=== PATIENT | male | born 1980 | race Caucasian/White ===

== ENCOUNTER 2016-09-13 09:37 | Emergency (ER) | payer BC, OTHER ==
[2016-09-13] MEDS ORDERED: LORazepam 1 MG Tab PO ONE (10:20)
[2016-09-13] MEDS ORDERED: LORazepam 0.5 MG Tab PO ONE (11:02)
--- NOTE | 2016-09-13 11:08 | EDM.PDOC ---
ED HPI Behavioral Health - General Chief Complaint: Behavioral/Psych Stated Complaint: ANXIETY Time Seen by Provider: 09/13/16 10:01 Source of Information: Reports: Patient Exam Limitations: Reports: No limitations - History of Present Illness INITIAL COMMENTS - FREE TEXT/NARRATIVE: The patient presents with anxiety and depression. He has had depression for the past few months. This all started around April. He had a friend and then he had an injury at work that he has been dealing with. He also has been told by his girlfriend she needs a time out. He went to work today and could not handle it. He went to his car and started crying and he had a panic attack. His supervisor steel [employer] brought him here. He sees an [employer]ER for his mental health issues at [facility] in [place]. He called her and she called in a prescription for atarax. The patient is not suicidal. Onset of Symptoms: Reports: gradual Duration of Symptoms: Reports: Week(s): Severity: moderate Context, Behavioral Health: Reports: school/work, other ([facility]) Associated Symptoms: Reports: anxiety, depression - Related Data Allergies Allergy/AdvReac Type Severity Reaction Status Date / Time acetaminophen [From Ultracet] Allergy Itching Verified 09/13/16 09:52 amitriptyline Allergy Other Verified 09/13/16 09:52 codeine Allergy Itching Verified 09/13/16 09:52 levofloxacin [From Levaquin] Allergy Other Verified 09/13/16 09:52 testosterone Allergy Redness Verified 09/13/16 09:52 tramadol HCl [From Ultracet] Allergy Itching Verified 09/13/16 09:52 Home Medications: Home Meds Chlorthalidone 50 mg PO DAILY 07/02/15 [History] Cyclobenzaprine [Flexeril] 10 mg PO BEDTIME PRN 07/02/15 [History] DULoxetine [Cymbalta] 60 mg PO DAILY 07/02/15 [History] Eletriptan [Relpax] 40 mg PO ASDIRECTED PRN 07/02/15 [History] L.acidoph,Paracasei, B.lactis [Probiotic] 1 tab PO DAILY 07/02/15 [History] Multivitamin [Multivitamins] 1 tab PO DAILY 07/02/15 [History] Pantoprazole [Protonix] 40 mg PO BID 07/02/15 [History] Potassium Citrate [Potassium Citrate ER] 10 meq PO TID 07/02/15 [History] Testosterone Cypionate [Depo-Testosterone] 0.75 ml IM ASDIRECTED 07/02/15 [ History] Cyclobenzaprine [Flexeril] 10 mg PO BID PRN #30 tablet 08/13/16 [Rx] Topiramate [Topamax] 50 mg PO DAILY 08/13/16 [History] buPROPion [Wellbutrin] 200 mg PO DAILY 08/13/16 [History] Past Medical History Respiratory History: Reports: Bronchitis, recurrent Genitourinary History: Reports: Renal calculus Musculoskeletal History: Reports: Other (see below) Other Musculoskeletal History: Broken nose Neurological History: Reports: Migraines Psychiatric History: Reports: Depression - Past Surgical History HEENT Surgical History: Reports: Naso-sinus surgery, Tonsillectomy, Other (see below) Other HEENT Surgeries/Procedures: also had surgery to remove "scar tissue mass out" GI Surgical History: Reports: Cholecystectomy Male Surgical History: Reports: Renal Calculus Social & Family History - Tobacco Use Smoking Status *Q: Never Smoker Second Hand Smoke Exposure: No - Caffeine Use Caffeine Use: Reports: Coffee - Recreational Drug Use Recreational Drug Use: No - Living Situation & Occupation Living situation: Reports: , with spouse Occupation: employed ED ROS GENERAL - Review of Systems Review Of Systems: See Below Constitutional: Reports: no symptoms HEENT: Reports: No symptoms Respiratory: Reports: No Symptoms Cardiovascular: Reports: No symptoms Endocrine: Reports: no symptoms GI/Abdominal: Reports: No symptoms : Reports: no symptoms Musculoskeletal: Reports: no symptoms Skin: Reports: no symptoms Psychiatric: Reports: Anxiety, Depression ED EXAM, BEHAVIORAL HEALTH - Physical Exam Exam: See Below Exam Limited By: No limitations General Appearance: alert, no apparent distress Ears: normal external exam Nose: normal inspection Head: atraumatic, normocephalic Neck: normal inspection Respiratory/Chest: no respiratory distress, lungs clear, normal breath sounds Cardiovascular: regular rate, rhythm, no edema, no murmur GI/Abdominal: soft, non tender, no organomegaly, no mass Back Exam: normal inspection Extremities: normal inspection COURSE, BEHAVIORAL HEALTH COMP - Course Vital Signs: Last Vital Signs Temp 97.3 F 09/13/16 09:46 Pulse 108 H 09/13/16 09:46 Resp 22 H 09/13/16 09:46 BP 146/82 H 09/13/16 09:46 Pulse Ox 100 09/13/16 09:46 Orders, Labs, Meds: Medications Discontinued Medications Generic Name Dose Route Start Last Admin Trade Name Keith PRN Reason Stop Dose Admin Lorazepam 1 mg 09/13/16 10:20 09/13/16 10:24 Ativan PO 09/13/16 10:21 1 mg ONETIME ONE Administration Lorazepam 0.5 mg 09/13/16 11:02 09/13/16 11:09 Ativan PO 09/13/16 11:03 0.5 mg ONETIME ONE Administration Re-Assessment/Re-Exam: I ordered 2 doses of ativan and he feels better. His [employer]ER called in some atarax. Departure - Departure Time of Disposition: 11:20 Disposition: Home, Self-Care 01 Condition: good Clinical Impression: Depressive disorder, Anxiety, Panic disorder Referrals: Rohit Nguyen MD [Primary Care Provider] - Forms: ED Department Discharge Additional Instructions: Take your medications as prescribed and please return if you feel worse.
[2016-09-13 11:41] VITALS: BP 145/86
== END 2016-09-13 11:41 | disposition home or self-care (01) ==
LOC: JD.ED 09:37
DX: F41.0 Panic disorder [episodic paroxysmal anxiety] (principal); F32.9 Major depressive disorder, single episode, unspecified; G43.909 Migraine, unspecified, not intractable, without status migrainosus; Z98.890 Other specified postprocedural states; Z90.49 Acquired absence of other specified parts of digestive tract; Z79.899 Other long term (current) drug therapy; Z88.5 Allergy status to narcotic agent; Z88.6 Allergy status to analgesic agent; Z88.1 Allergy status to other antibiotic agents; Z88.8 Allergy status to other drugs, medicaments and biological substances
CPT/HCPCS: 99283; A9270

== ENCOUNTER 2017-01-20 05:48 | Emergency (ER) | payer BC ==
[2017-01-20 06:01] VITALS: BP 139/71
[2017-01-20] MEDS ORDERED: Lidocaine 1% 50 ML MDV INJECT ONE (06:01)
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
--- NOTE | 2017-01-20 06:54 | CT ---
Head CT Technique: Multiple axial sections through the brain were obtained. Intravenous contrast was not utilized. Comparison: Previous head CT exam of 08/13/16. Findings: Ventricles along with basal cisterns and sulci over the convexities are within normal limits for the patient's age. No abnormal parenchymal densities are seen. No evidence of intracranial hemorrhage. No midline shift or mass effect is seen. Bone window settings shows the visualized sinuses to appear clear. No acute calvarial abnormality is seen. Impression: 1. No acute intracranial abnormality is identified. No appreciable change is seen from previous exam. Diagnostic code #1
== END 2017-01-20 07:30 | disposition home or self-care (01) ==
LOC: JD.ED 05:48
DX: S02.2XXA Fracture of nasal bones, initial encounter for closed fracture (principal); S01.81XA Laceration without foreign body of other part of head, initial encounter; F32.9 Major depressive disorder, single episode, unspecified; Z98.890 Other specified postprocedural states; Z88.6 Allergy status to analgesic agent; Z88.5 Allergy status to narcotic agent; Z88.8 Allergy status to other drugs, medicaments and biological substances; Z79.899 Other long term (current) drug therapy; Z87.442 Personal history of urinary calculi; Y04.0XXA Assault by unarmed brawl or fight, initial encounter
CPT/HCPCS: 12013; 70450; 70450-26; 99284-25

== ENCOUNTER 2017-03-04 08:36 | Emergency (ER) | payer BC ==
[2017-03-04 08:48] VITALS: BP 111/74
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
--- NOTE | 2017-03-06 07:54 | CR ---
Soft tissue neck: AP and lateral views of the neck were obtained. Vertebral body heights and disc spaces are maintained. Prevertebral soft tissues are normal. Epiglottis is normal. No opaque foreign object is seen. Impression: 1. No abnormality is identified on two-view soft tissue neck exam. Diagnostic code #1
== END 2017-03-04 11:00 | disposition home or self-care (01) ==
LOC: JD.ED 08:36
DX: J02.9 Acute pharyngitis, unspecified (principal); F32.9 Major depressive disorder, single episode, unspecified; Z88.6 Allergy status to analgesic agent; Z88.5 Allergy status to narcotic agent; Z88.1 Allergy status to other antibiotic agents; Z79.899 Other long term (current) drug therapy; Z87.442 Personal history of urinary calculi; Z90.49 Acquired absence of other specified parts of digestive tract
CPT/HCPCS: 70360; 70360-26; 99283

== ENCOUNTER 2024-04-10 05:53 | Emergency (ER) | payer BC ==
[2024-04-10] MEDS: Sodium Chloride 0.9% 1,000 ML IV SCH (06:18)
[2024-04-10] MEDS: HYDROmorphone 1 MG/ML Syringe IVPUSH ONE (06:18)
[2024-04-10] MEDS: Metoclopramide 10 MG/2 ML SDV IVPUSH ONE (06:19)
[2024-04-10] MEDS: diphenhydrAMINE 50 MG/ML SDV IVPUSH ONE (06:19)
[2024-04-10 06:38] LABS: APPEARANCE,URINE CLEAR (Clear); BILIRUBIN,URINE NEGATIVE (Negative); COLOR,URINE YELLOW (Yellow); GLUCOSE,URINE NEGATIVE (Negative); KETONES,URINE NEGATIVE (Negative); LEUKOCYTE ESTERASE,URINE 1+ (Negative); NITRITE,URINE NEGATIVE (Negative); OCCULT BLOOD,URINE 1+ (Negative); PROTEIN,URINE 2+ (Negative); UROBILINOGEN,URINE 0.2 (0.2-1.0)
[2024-04-10 06:48] LABS: AMORPHOUS SEDIMENT,URINE MODERATE /hpf (NOT SEEN); BACTERIA,URINE FEW /hpf (FEW); EPITHELIAL CELLS,URINE 0-5 /hpf (0-5); MUCUS,URINE FEW /hpf (FEW)
[2024-04-10] MEDS ORDERED: Acetaminophen/oxyCODONE 325-5 MG Tab PO ONE (07:26)
[2024-04-10 12:50] VITALS: BP 130/78; PULSE 78
== END 2024-04-10 08:10 | disposition home or self-care (01) ==
LOC: JD.ED 05:53
DX: N23 Unspecified renal colic (principal); Z90.49 Acquired absence of other specified parts of digestive tract; Z88.5 Allergy status to narcotic agent; Z88.1 Allergy status to other antibiotic agents; Z88.8 Allergy status to other drugs, medicaments and biological substances
CPT/HCPCS: 74176; 81001; 96361; 96374; 96375; 99284; J1171; J1200; J2765; J7030